=== PATIENT | female | born 2000 | race Caucasian/White ===

== ENCOUNTER 2024-03-06 10:46 | Outpatient (CLI) | payer OTHER ==
--- NOTE | 2024-03-06 13:34 | XRAY Report ---
PROCEDURE: Finger(s) LT INDICATIONS: THUMB PAIN, LEFT TECHNIQUE: AP hand, 2 views of the first finger(s) acquired. COMPARISON: None. FINDINGS: Bones: No fractures or dislocations. No suspicious bony lesions. Soft tissues: No suspicious soft tissue calcifications or masses. IMPRESSION: No acute bony abnormality. Reviewed by: Lucia Evans MD on 03/06/2024 1:33 PM PDT Approved by: Lucia Evans MD on 03/06/2024 1:33 PM PDT Station ID: [id number]
== END 2024-03-06 10:47 | disposition home or self-care (01) ==
LOC: DI.N 10:46
PROVIDERS: ATTEND Physician Assistant Surgical
DX: M79.645 Pain in left finger(s) (principal)